=== PATIENT | male | born 1960 | race Asian ===

== ENCOUNTER 2019-11-20 00:35 | Emergency (ER) | payer OTHER ==
[~2019-11-20] VITALS: Ht 175.3 cm; Wt 77.1 kg
[2019-11-20] MEDS ORDERED: HYDROCODON-ACE1 EAC8 PO (01:31)
[2019-11-20] MEDS ORDERED: PENICILLIN VK250 MG PO (01:31)
[2019-11-20 01:57] VITALS: BP 163/93
== END 2019-11-20 02:06 | disposition home or self-care (01) ==
LOC: M.ERS 00:35
DX: K08.89 Other specified disorders of teeth and supporting structures (principal)